=== PATIENT | female | born 1985 | race Two or more races ===

== ENCOUNTER 2016-07-02 15:10 | Outpatient (CLI) | payer OTHER ==
[~2016-07-02] VITALS: Ht 157.5 cm; Wt 62.3 kg
[~2016-07-02 15:10] MED LIST: ALBU8.5H3 INH; FER325 PO; PREN1TAB31 PO; QVAR40 INH
[2016-07-02 15:18] VITALS: BP 121/72; PULSE 72; RESP 16; Ht 157.5 cm; Wt 62.3 kg
[2016-07-02] MEDS ORDERED: AZIT250T94 PO (15:35)
[2016-07-02] MEDS ORDERED: IPRA3AMP INHALATION (15:35)
[2016-07-02] MEDS ORDERED: VIT1TABL46 PO (15:35)
[2016-07-02] MEDS ORDERED: CHOL100062 PO (15:35)
--- NOTE | 2016-07-02 15:39 | PN ---
Date/Time of Note Date/Time of Note DATE: 07/02/16 TIME: 15:34 Outpatient Progress Note Chief Complaint Asthma HPI Asthma/acute onset, few days duration, moderately severe, aggravated by exercise , patient was recently hospitalized, patient was started on antibiotic and inhaler, and reduced with the prednisone, still has wheezing, no fever or chill , aggravated by allergy, no hemoptysis, no chest pain, no tightness, Review of Systems Const: No Fever, no chills, no Wt. loss, no Fatigue, normal appetite, no diaphoresis. Eyes: No pain, no discharge, no redness, no visual change, no foreign body. ENT: No pain, no bleeding, no congestion, no sore throat, no dysphagia, no discharge or rhinitis. Lymph: No adenopathy, no tender nodes, no lymphedema. Resp: Mild SOB, slight cough, no sputum, no wheezing, no chest pain. CV: No chest pain, no palpitaions, no HARO, no PND, no edema. GI: Normal appetite, no pain, no nausea, no vomiting, no diarrhea, no blood, no constipation. : No frequency, no urgency, no dysuria, no hematuria, no flank pain, no discharge, no bleeding. Musc: No bone/joint pain, no back pain, no neck pain, no knee pain, no restricted ROM. Skin: No rash, no skin lesions, no erythema, no laceration, no bruising, no pruritus. Neuro: No JACKSON, no dizziness, no syncope, no seizure, no focal-weakness. Endo: No polyuria, no polydypsia, no dry-skin, no temp-intolerance. Psych: No hallucinations, no depression, no anxiety, no suicidal ideation. Ext: No edema, no pain, no ulcer, no weakness. Physical Exam General Appearance: A 31 year-old female who appears well-developed, well- nourished, in no acute distress. HEENT: Head normocephalic, atraumatic. Pupils equal, round, reactive to light and accommodate. Sclerae are no jaundice. Nasal turbinates pink without erythema or nasal discharge. Mucous membranes pink and moist without lesions. Oropharynx clear without any exudate or discharge. NECK: Supple. Trachea midline, No thyromegaly, No cervical lymphadenopathy, No mass, No carotid bruits, No JVD, Carotid pulses 2+ bilaterally. PULMONARY: Clear to auscultaion bilaterally, No retractions, Chest expansion symmetric bilaterally, no rales, bilateral ronchi, no dulness on percussion. CARDIAC: Normal SI and S2, Regular rate and rythm, no murmur, gallop, or rub. GASTROINTESTINAL: Abdomen is soft, non-tender, Non Rigid, No distention, Positive bowel sounds x4 quadrants, Liver normal. SKIN: Warm, dry, no rash, no bruise, no echmosis. EXTREMITIES: Bilateral lower extremities normal, no edema, no phlabitus, pulse palpable, no contracture. MUSCULOSKELETAL: Spine Normal, Non-tender, Normal range of motion, No swelling, no deformity, no clubbing, or cyanosis, the patient has no edema to bilateral lower extremities, dorsalis pedis pulses palpable bilaterally. NEUROLOGIC: The patient is awake, alert, oriented, responding to yes/no questions appropriately, moving all extremities, cranial nerve intact, normal strenght, normal power, normal coordination, normal gait. Allergies Coded Allergies: Grass Poll-[place] Fescue,Std (Verified Allergy, Mild, HIVES,RASH, 02/18/14 ) Wheat Containing Prod (Verified Allergy, Mild, HIVES,RASH, 02/18/14) nitrofurantoin (Verified Allergy, Unknown, HIVES,RASH, 02/18/14) Uncoded Allergies: DOG DANDER (Allergy, Unknown, HIVES,RASH, 07/15/10) SHRIMP (Allergy, Unknown, HIVES,RASH, 07/15/10) PMH Asthma D&C Social Hx No smoking no drinking no drugs, Assessment/Plan Family history mother has a history of diabetes, and also has a history of high blood pressure and thyroid problem and hyperlipidemia, Assessment Acute exacerbation of asthma Plan Patient education done about asthma, patient has still wheezing, still short of breath on exertion, Patient educated, not to do any heavy exercise at present, patient was taking inhaler/breathing treatment only twice a day, patient advised to take up 4 times a day, Patient encouraged to follow with the primary care physician, Patient still has all the medication, continue present treatment, if wheezing get worse to call us, Medications Home Meds Reported Medications Albuterol Sulfate* (Proair HFA*) 8.5 Gm Hfa.aer.ad, 2 PUFF INH Q4H Y for WHEEZING AND SOB, INH 11/24/14 Beclomethasone Dip (Qvar 40) Unknown Strength Inha, INH BID, EA 02/18/14 Vits #90-Iron Fum-FA ( Formula) 1 Each Tablet, 1 TAB PO DAILY, TAB 02/18/14 Ferrous Sulfate* (Ferrous Sulfate*) 325 Mg Tabec, 325 MG PO DAILY, TAB 02/18/14 BRYAN REYNOSO MD Jul 02, 2016 15:39
== END 2016-07-02 17:05 | disposition home or self-care (01) ==
LOC: DCC 15:10
PROVIDERS: ATTEND Internal Medicine
DX: J45.901 Unspecified asthma with (acute) exacerbation (principal)

== ENCOUNTER 2016-07-16 11:30 | Outpatient (CLI) | payer OTHER ==
[~2016-07-16] VITALS: Ht 157.5 cm; Wt 62.3 kg
[~2016-07-16 11:30] MED LIST changes: +AZIT250T94 PO; +CHOL100062 PO; +IPRA3AMP INHALATION; +VIT1TABL46 PO
[2016-07-16 12:01] VITALS: BP 126/70; PULSE 113; RESP 18; Ht 157.5 cm; Wt 62.3 kg
--- NOTE | 2016-07-16 12:20 | PN ---
Date/Time of Note Date/Time of Note DATE: 07/16/16 TIME: 12:17 Outpatient Progress Note Chief Complaint Asthma/ HPI Asthma/patient has an acute attack of asthma, patient has exacerbation, patient was seen in the hospital, patient has been taking inhaler 4 times daily, patient much better, no cough expectoration, no fever chills, no chest tightness , no wheezing, slightly short of breath on heavy exercise, no hemoptysis, Review of Systems Const: No Fever, no chills, no Wt. loss, no Fatigue, normal appetite, no diaphoresis. Eyes: No pain, no discharge, no redness, no visual change, no foreign body. ENT: No pain, no bleeding, no congestion, no sore throat, no dysphagia, no discharge or rhinitis. Lymph: No adenopathy, no tender nodes, no lymphedema. Resp: No SOB, at rest, minimal shortness of breath on heavy exercise, no cough, no sputum, no wheezing, no chest pain. CV: No chest pain, no palpitaions, no HARO, no PND, no edema. GI: Normal appetite, no pain, no nausea, no vomiting, no diarrhea, no blood, no constipation. : No frequency, no urgency, no dysuria, no hematuria, no flank pain, no discharge, no bleeding. Musc: No bone/joint pain, no back pain, no neck pain, no knee pain, no restricted ROM. Skin: No rash, no skin lesions, no erythema, no laceration, no bruising, no pruritus. Neuro: No JACKSON, no dizziness, no syncope, no seizure, no focal-weakness. Endo: No polyuria, no polydypsia, no dry-skin, no temp-intolerance. Psych: No hallucinations, no depression, no anxiety, no suicidal ideation. Ext: No edema, no pain, no ulcer, no weakness. Physical Exam Vital Signs Date Time Temp Pulse Resp B/P Pulse Ox O2 Delivery O2 Flow Rate FiO2 07/16/16 12:01 98.0 113 18 126/70 100 Room Air General Appearance: A 31 year-old female who appears well-developed, well- nourished, in no acute distress.] HEENT: [Head normocephalic, atraumatic. Pupils equal, round, reactive to light and accommodate. Sclerae are no jaundice. Nasal turbinates pink without erythema or nasal discharge. Mucous membranes pink and moist without lesions. Oropharynx clear without any exudate or discharge.] NECK: [Supple. Trachea midline, No thyromegaly, No cervical lymphadenopathy, No mass, No carotid bruits, No JVD, Carotid pulses 2+ bilaterally.] PULMONARY: [Clear to auscultaion bilaterally, No retractions, Chest expansion symmetric bilaterally, no rales, no ronchi, no dulness on percussion.] CARDIAC: [Normal SI and S2, Regular rate and rythm, no murmur, gallop, or rub.] GASTROINTESTINAL: [Abdomen is soft, non-tender, Non Rigid, No distention, Positive bowel sounds x4 quadrants, Liver normal.] SKIN: [Warm, dry, no rash, no bruise, no echmosis.] EXTREMITIES: [Bilateral lower extremities normal, no edema, no phlabitus, pulse palpable, no contracture.] MUSCULOSKELETAL: [Spine Normal, Non-tender, Normal range of motion, No swelling , no deformity, no clubbing, or cyanosis, the patient has no edema to bilateral lower extremities, dorsalis pedis pulses palpable bilaterally.] NEUROLOGIC: [The patient is awake, alert, oriented, responding to yes/no questions appropriately, moving all extremities, cranial nerve intact, normal strenght, normal power, normal coordination, normal gait.] Allergies Coded Allergies: Grass Poll-[place] Fescue,Std (Verified Allergy, Mild, HIVES,RASH, 02/18/14 ) Wheat Containing Prod (Verified Allergy, Mild, HIVES,RASH, 02/18/14) nitrofurantoin (Verified Allergy, Unknown, HIVES,RASH, 02/18/14) Uncoded Allergies: DOG DANDER (Allergy, Unknown, HIVES,RASH, 07/15/10) SHRIMP (Allergy, Unknown, HIVES,RASH, 07/15/10) PMH Asthma Social Hx No change Family Hx No change Assessment/Plan Impression Acute exacerbation of asthma Plan Patient is doing very well, patient taking inhaler on a regular basis, patient stable enough to go back to work and increase activity, Patient advised to follow with the primary care physician, Patient advised if severe shortness of breath or call us or primary physicians or go to the ER, Medications Home Meds Reported Medications Vitamin B Complex* (Vitamin B Complex*) 1 Each Tablet, 1 TAB PO DAILY, TAB 07/02/16 Cholecalciferol* (Vitamin D3*) 1,000 Unit Tablet, 1000 UNIT PO DAILY, TAB 07/02/16 Ipratropium-Albuterol (Ipratropium-Albuterol) 0.5-3 Mg/3 Ml Ampul.neb, 3 ML INHALATION Q6 for WHEEZING, #30 VIAL 07/02/16 Albuterol Sulfate* (Proair HFA*) 8.5 Gm Hfa.aer.ad, 2 PUFF INH Q4H Y for WHEEZING AND SOB, INH 02/18/14 Discontinued Reported Medications Azithromycin* (Zithromax*) 250 Mg Tablet, 250 MG PO DAILY, TAB 07/02/16 BRYAN REYNOSO MD Jul 16, 2016 12:20
== END 2016-07-16 16:01 | disposition home or self-care (01) ==
LOC: DCC 11:30
PROVIDERS: ATTEND Internal Medicine
DX: J45.901 Unspecified asthma with (acute) exacerbation (principal)